=== PATIENT | male | born 1950 | race Hispanic/Latino ===

== ENCOUNTER 2018-03-31 10:11 | Outpatient (CLI) | payer MEDICARE ==
--- NOTE | 2018-03-31 13:14 | CT ---
NONCONTRAST LOW DOSE CT THORAX: Date: 03/31/18 HISTORY: Tobacco abuse. Smoking history of 45 years. Patient continues to smoke. COMPARISON: None available. FINDINGS: There is a 5.0 mm noncalcified pulmonary nodule in the medial aspect of the right upper lobe (image 2 0, series 3). No additional discrete pulmonary nodule or mass is seen. There are reticulonodular densities at the posterior aspect of the right lung base, which may be rela oleg to infectious or inflammatory process. Linear scarring versus atelectasis is present at each lung base. Vascular calcifications are seen in the thoracic aorta and coronary arteries. There is minimal perica rdial thickening versus pericardial effusion. Lack of intravenous contrast does limit evaluation of the vascular structures and mediastinum, but no definite enlarged lymph nodes are appreciated. Imaging of the upper abdomen demonstrates an approximately 3.4 cm low density left adrenal mass which demonstrates fat attenuation and is most suggestive of an adrenal adenoma. Post cholecystectomy saavedra ges are noted. IMPRESSION: 1. LUNG-RADS Category 2 - Solitary pulmonary nodule right upper lobe. Continue annual screening with low dose CT in 12 months. 2. Category S - Reticulonodular densities at the inferior aspect right lower lobe, which may be rela oleg to infectious or inflammatory process. 3. Left adrenal nodule, demonstrating attenuation coefficient most compatible with an adrenal adenom a. 4. Post cholecystectomy changes. POS: LEANDRO
== END 2018-03-31 10:12 | disposition home or self-care (01) ==
LOC: CT 10:11
PROVIDERS: ATTEND Internal Medicine
DX: F17.210 Nicotine dependence, cigarettes, uncomplicated (principal); R91.1 Solitary pulmonary nodule; J98.4 Other disorders of lung; E27.9 Disorder of adrenal gland, unspecified; Z90.49 Acquired absence of other specified parts of digestive tract
CPT/HCPCS: G0297